=== PATIENT | male | born 1945 | race Caucasian/White ===

== ENCOUNTER → 2017-11-03 | Outpatient (CLI) | payer OTHER, MEDICAID ==
[~2017-11-03] MED LIST: INSNOV SQ
[2017-11-03 11:43] VITALS: BP 106/64
== END | disposition home or self-care (01) ==
LOC: SRCNTR 09:56
PROVIDERS: ATTEND Internal Medicine Clinical Cardiac Electrophysiology
DX: Z45.02 Encounter for adjustment and management of automatic implantable cardiac defibrillator (principal)
CPT/HCPCS: G0463

== ENCOUNTER → 2017-11-24 | Outpatient (CLI) | payer OTHER, MEDICAID ==
[~2017-11-24] MED LIST changes: +ASPI81 PO; +ATOR40TA28 PO; +LINA5TAB PO; +LISINOPRIL PO; +METOPROLOL ER PO; +OXYC-30 PO; +SEVEC800 PO; +TICA90TA PO
[2017-11-24 11:38] VITALS: BP 101/45
== END | disposition home or self-care (01) ==
LOC: SRCNTR 11:37
PROVIDERS: ATTEND Internal Medicine Clinical Cardiac Electrophysiology
DX: Z45.02 Encounter for adjustment and management of automatic implantable cardiac defibrillator (principal); I11.0 Hypertensive heart disease with heart failure; I50.9 Heart failure, unspecified; E11.9 Type 2 diabetes mellitus without complications; Z79.4 Long term (current) use of insulin; Z79.82 Long term (current) use of aspirin
CPT/HCPCS: G0463